=== PATIENT | female | born 1980 | race African-American/Black ===

== ENCOUNTER 2018-10-27 15:58 | Emergency (ER) | payer MEDICAID, OTHER ==
[~2018-10-27] VITALS: Ht 175.3 cm; Wt 118.0 kg
[2018-10-27 18:16] LABS: CHLORIDE 106 mEq/L (98-107)
[2018-10-27 18:18] LABS: BASOPHILS % 0.6 % (0.0-2.0); EOSINOPHILS % 0.4 % (0.0-5.0); HEMATOCRIT. 24.5 % (36.0-48.0); HEMOGLOBIN. 7.1 g/dL (12.0-16.0); LYMPHOCYTES % 32.3 % (20.0-50.0); MEAN CORPUSCULAR VOLUME 58.8 fL (81.0-99.0); MEAN PLATELET VOLUME 8.7 fl (7.4-10.4); MONOCYTES % 7.3 % (2.0-8.0); NEUTROPHILS % 59.4 % (40.0-76.0); PLATELET 358 x1000/uL (130-400); RED BLOOD CELL COUNT 4.17 mill/uL (4.2-5.4); RED CELL DISTRIBUTION WIDTH 20.4 % (11.6-14.6)
[2018-10-27 18:28] LABS: PROTHROMBIN TIME 10.6 sec (9.6-11.0)
[2018-10-27 18:29] LABS: HCG SCREEN NEGATIVE
[2018-10-27 18:45] LABS: PLATELET ESTIMATE NORMAL
[2018-10-27 19:25] LABS: TOTAL IRON BINDING CAPACITY 499 ug/dL (250-450)
[2018-10-27 21:38] VITALS: BP 131/83
== END 2018-10-27 22:38 | disposition short-term general hospital (02) ==
LOC: ER 15:58 → CANBEDREQ 23:52
DX: D64.9 Anemia, unspecified (principal); R42 Dizziness and giddiness; R53.1 Weakness; I10 Essential (primary) hypertension; Z98.890 Other specified postprocedural states
CPT/HCPCS: 36415; 36430; 71045; 82728; 83540; 83550; 84703; 86850; 86900; 86920; 93005; 99285; P9016

== ENCOUNTER 2019-10-28 12:30 | Emergency (ER) | payer MEDICAID, OTHER ==
[~2019-10-28] VITALS: Ht 177.8 cm; Wt 91.0 kg
[2019-10-28] MEDS ORDERED: IBUPROFEN 600MG TABLET PO ONE (13:00)
[2019-10-28] MEDS ORDERED: BACITRACIN ZINC OINT UDPKT TOP ONE (13:15)
[2019-10-28] MEDS ORDERED: TETANUS, DIPHTHERIA, PERTUSSIS VAC/PF 0.5ML (>7YR OLD) IM ONE (13:15)
[2019-10-28] MEDS ORDERED: LIDOCAINE HCL/PF 1% 10 MG/ML 5ML VIAL IJ ONE (13:15)
[2019-10-28 14:29] VITALS: BP 148/97
== END 2019-10-28 14:29 | disposition home or self-care (01) ==
LOC: ER 12:30
DX: S61.011A Laceration without foreign body of right thumb without damage to nail, initial encounter (principal); W45.8XXA Other foreign body or object entering through skin, initial encounter; I10 Essential (primary) hypertension; Z98.890 Other specified postprocedural states; Z91.14 Patient's other noncompliance with medication regimen; W29.2XXA Contact with other powered household machinery, initial encounter; Y93.89 Activity, other specified; Y92.89 Other specified places as the place of occurrence of the external cause
CPT/HCPCS: 73130; 90471; 90715; 99283; J3490

== ENCOUNTER 2020-04-06 15:18 | Emergency (ER) | payer MEDICAID ==
[~2020-04-06] VITALS: Ht 177.8 cm; Wt 98.0 kg
[2020-04-06] MEDS ORDERED: HYDROCODONE/ACETAMINOPHEN 5/325MG TABLET PO ONE (15:45)
[2020-04-06] MEDS ORDERED: ONDANSETRON 4MG ODT PO ONE (15:45)
[2020-04-06] MEDS ORDERED: KETOROLAC 60MG/2ML VIAL IM ONE (17:30)
[2020-04-06 18:35] VITALS: BP 145/89
== END 2020-04-06 18:36 | disposition home or self-care (01) ==
LOC: ER 15:18
DX: M25.511 Pain in right shoulder (principal); M54.2 Cervicalgia; M54.5 Low back pain; M54.6 Pain in thoracic spine; I10 Essential (primary) hypertension; Z98.890 Other specified postprocedural states; V43.52XA Car driver injured in collision with other type car in traffic accident, initial encounter; Y93.89 Activity, other specified; Y92.488 Other paved roadways as the place of occurrence of the external cause
CPT/HCPCS: 71045; 72070; 72100; 72125; 73030; 93005; 99285; J1885; Q0162

== ENCOUNTER 2023-07-30 10:38 | Emergency (ER) | payer MEDICAID ==
[~2023-07-30] VITALS: Ht 172.7 cm; Wt 104.0 kg
[2023-07-30 10:45] VITALS: O2SAT 98
[2023-07-30] MEDS ORDERED: FAMOTIDINE 20MG/2ML VIAL IV ONE (11:00)
[2023-07-30] MEDS ORDERED: EPINEPHRINE 1:1000 1 MG/ML AMP IM ONE (11:00)
[2023-07-30] MEDS ORDERED: METHYLPREDNISOLONE SOD SUCC 125MG/2ML (ACT-O-VIAL) IV ONE (11:00)
[2023-07-30] MEDS ORDERED: DIPHENHYDRAMINE 50MG/ML VIAL IV ONE (11:00)
[2023-07-30] MEDS ORDERED: FAMO-135 MT (14:26)
[2023-07-30] MEDS ORDERED: EPIN0.3P3 IM (14:26)
[2023-07-30] MEDS ORDERED: P20 MT (14:26)
[2023-07-30] MEDS ORDERED: DIPH25TA24 PO (14:26)
[2023-07-30 14:39] VITALS: BP 140/82; PULSE 60; RESP 16; TEMP 97.8
== END 2023-07-30 15:46 | disposition home or self-care (01) ==
LOC: ER 10:38
DX: T78.3XXA Angioneurotic edema, initial encounter (principal); I10 Essential (primary) hypertension; D64.89 Other specified anemias; Z98.890 Other specified postprocedural states
CPT/HCPCS: 93005; 96372; 96374; 96375; 99284; J1200; J3490 ×2; J2930; Z7610 ×5

== ENCOUNTER 2025-03-24 19:29 | Emergency (ER) | payer SELFPAY ==
[~2025-03-24] VITALS: Ht 172.7 cm; Wt 118.0 kg
[~2025-03-24 19:29] MED LIST: DIPH25TA24 PO; EPIN0.3P3 IM; FAMO-135 MT; P20 MT
[2025-03-24 19:32] VITALS: O2SAT 100
[2025-03-24 19:40] VITALS: BP 141/108; PULSE 101; RESP 18; TEMP 36.9; O2SAT 99
== END 2025-03-24 22:20 | disposition left against medical advice (07) ==
LOC: ER 19:29
DX: R10.9 Unspecified abdominal pain (principal); M54.89 Other dorsalgia; M79.18 Myalgia, other site; Z53.21 Procedure and treatment not carried out due to patient leaving prior to being seen by health care provider